=== PATIENT | female | born 1980 | race Two or more races ===

== ENCOUNTER 2016-08-29 19:30 | Inpatient (IN) | payer OTHER ==
[2016-08-30] MEDS ORDERED: ELECTROLYTE-148 SOLN 1,000 ML IV ONE (07:00)
[2016-08-30] MEDS ORDERED: CITRIC ACID/SODIUM CITRATE 30 ML UNIT-DOSE CUP PO ONE (07:00)
[2016-08-30] MEDS ORDERED: ELECTROLYTE-148 SOLN 1,000 ML IV SCH (08:00)
[2016-08-30 08:23] VITALS: BMI 47.0
--- NOTE | 2016-08-30 09:56 | HP ---
Past Medical History - Primary Care Physician PCP:: Bladimir Ly - Admission Chief Complaint: 36 weeks, oligohydramnion, breech History of Present Illness: 36 yo f edc by sono 09/27/16 with hx of oligo referred by DR pierce for c/s for olio, breech, fhr cat 1, cx clp, mi History Source: Patient Limitations to Obtaining History: No Limitations - Past Medical History ...: 4 ...Para: 0 ...Term: 0 ...: 0 ...Spon : 3 ...Induced : 0 ...Multiple Gestation: 0 ...LMP: 12/22/15 ... Weeks Gestation by Dates: 36.0 ...EDC by Dates: 09/27/16 ...EDC by Sono: 09/27/16 - Past Surgical History Hx Myomectomy: No Hx Transabdominal Cerclage: No - Smoking History Smoking history: Never smoked Have you smoked in the past 12 months: No - Alcohol/Substance Use Hx Alcohol Use: No - Social History Usual Living Arrangement: Yes: With Spouse History of Recent Travel: No Home Medications - Allergies Allergies/Adverse Reactions: Allergies Allergy/AdvReac Type Severity Reaction Status Date / Time No Known Allergies Allergy Verified 08/30/16 08:04 - Home Medications Home Medications: Ambulatory Orders Vit/Iron Fumarate/FA [ Tablet] 1 each PO DAILY 04/09/15 Ferrous Sulfate 1 tab PO DAILY 08/26/16 Review of Systems - Review of Systems Constitutional: reports: No Symptoms Eyes: reports: No Symptoms HENT: reports: No Symptoms Neck: reports: No Symptoms Cardiovascular: reports: No Symptoms Gastrointestinal: reports: No Symptoms Genitourinary: reports: No Symptoms Breasts: reports: No Symptoms Reported Musculoskeletal: reports: No Symptoms Integumentary: reports: No Symptoms Neurological: reports: No Symptoms Endocrine: reports: No Symptoms Hematology/Lymphatic: reports: No Symptoms Psychiatric: reports: No Symptoms Physical Exam - Maternity Vital Signs: Vital Signs Temperature 98.6 F 08/30/16 08:00 Pulse Rate 67 08/30/16 08:00 Respiratory Rate 18 08/30/16 08:00 Blood Pressure 102/68 08/30/16 08:00 O2 Sat by Pulse Oximetry (%) Constitutional: Yes: Well Nourished, No Distress, Calm, Obese Eyes: Yes: WNL, Conjunctiva Clear, EOM Intact HENT: Yes: WNL, Atraumatic, Normocephalic Neck: Yes: WNL, Supple, Trachea Midline Cardiovascular: Yes: WNL, Regular Rate and Rhythm Breast(s): Yes: WNL - Abdominal Exam/OB Fundal Height: 36 Number of Fetuses: Single Presentation: Breech Contractions: No Intensity: Unaware Monitor Mode: External Heart Rate Location: [facility] Category: I Accelerations: Uniform Decelerations: None - Vaginal Exam/OB Vaginal Bleediing: No Speculum Exam: No Presentation: Vertex/Position Station: -4 - Physical Exam Edema: Yes Edema: LLE: Trace, RLE: Trace Deep Tendon Reflex Grade: Normal +2 Hemorrhage Risk Assessment - Risk Factors Medium Risk Factors: Yes: EFW greater than 4000g Risk Score: 1 Risk Level: Medium Risk Problem List - Problems (1) with 36 completed weeks gestation Code(s): Z3A.36 - 36 WEEKS GESTATION OF (2) Oligohydramnios antepartum Code(s): O41.00X0 - OLIGOHYDRAMNIOS, UNSP TRIMESTER, NOT APPLICABLE OR UNSP Qualifiers: Trimester: third trimester (3) Breech presentation Code(s): O32.1XX0 - MATERNAL CARE FOR BREECH PRESENTATION, UNSP Qualifiers: Fetus number: single or unspecified fetus Qualified Code(s): O32.1XX0 - Maternal care for breech presentation, not applicable or unspecified Assessment/Plan admit for c/s, rba discussed,
[2016-08-30] MEDS ORDERED: diphenhydrAMINE HCL 25 MG CAPSULE (FP) PO PRN (11:25)
[2016-08-30] MEDS ORDERED: IBUPROFEN 800 MG/8 ML IJ IVPB PRN (11:25)
[2016-08-30] MEDS ORDERED: METHYLERGONOVINE MALEATE 0.2 MG/1 ML AMP IM PRN (11:25)
[2016-08-30] MEDS ORDERED: BENZOCAINE 20% 57 GM BOTTLE TP PRN (11:25)
[2016-08-30] MEDS ORDERED: oxyCODONE HCL 5 MG TABLET PO PRN ×2 (11:25)
[2016-08-30] MEDS ORDERED: WITCH HAZEL 50% (TUCKS) 40 PAD/JAR PAD TP PRN (11:25)
[2016-08-30] MEDS ORDERED: BENZOCAINE 28 GM HEMORRHOIDAL OINTMENT PR PRN (11:25)
[2016-08-30] MEDS ORDERED: ONDANSETRON 4 MG/2 ML VIAL IVPB PRN (11:29)
[2016-08-30] MEDS ORDERED: OXYTOCIN 20 UNITS in 0.9% NS 1,000 ML IV SCH (11:30)
[2016-08-30] MEDS ORDERED: CEFAZOLIN (PRE-DOCKED) 50 ML IVPB ONE (17:29)
[2016-08-30] MEDS: CEFAZOLIN 2 GM/D5W 50 ML IVPB SCH (18:46)
[2016-08-30] MEDS: DEXTROSE 5%-LACTATED RINGERS 1,000 ML IV SCH (21:14)
[2016-08-31] MEDS: CEFAZOLIN 2 GM/D5W 50 ML IVPB SCH ×2 (01:14→09:50)
[2016-08-31] MEDS: DEXTROSE 5%-LACTATED RINGERS 1,000 ML IV SCH (05:47)
[2016-08-31] MEDS: IBUPROFEN 600 MG TABLET (FP) PO PRN ×4 (05:47→20:45)
[2016-08-31] MEDS: SIMETHICONE 80 MG TAB.CHEW (FP) PO PRN ×4 (05:47→20:44)
[2016-08-31] MEDS: ACETAMINOPHEN 325 MG TABLET (FP) PO PRN ×4 (05:48→20:44)
[2016-08-31 08:39] LABS: BASOPHIL 0.2 % (0-2.0); EOSINOPHIL 0.8 % (0-4.5); MCH 32.1 pg (25.7-33.7); MCHC 33.8 g/dl (32.0-36.0); MEAN CELL VOLUME 94.8 fl (80-96); MEAN PLT VOLUME 8.5 fl (7.5-11.1); NEUTROPHILS 67.8 % (42.8-82.8); PLATELET COUNT 235 K/MM3 (134-434); RDW 13.1 % (11.6-15.6)
[2016-08-31] MEDS: ENOXAPARIN NA (PORCINE) 40 MG/0.4 ML DISP.SYRIN SQ SCH (09:50)
[2016-08-31] MEDS: FERROUS SO4 325 MG TABLET (FP) PO SCH (09:50)
[2016-08-31] MEDS: PRENATAL VITAMINS W/ FOLIC ACID TABLET (FP) PO SCH (09:50)
[2016-08-31] MEDS ORDERED: DIPHTH,PERTUSS(ACELL),TET 0.5 ML DISP.SYRIN IM ONE (10:00)
--- NOTE | 2016-08-31 11:01 | PN ---
Progress Note (short form) - Note Progress Note: Anesthesia/pain Alert and awake Vital Signs Temperature 97.8 F 08/31/16 08:43 Pulse Rate 69 08/31/16 08:43 Respiratory Rate 18 08/31/16 09:56 Blood Pressure 100/60 08/31/16 08:43 O2 Sat by Pulse Oximetry (%) 97 08/30/16 12:30 CBC, BMP 08/31/16 07:45 Current Active Problems Breech presentation (Acute) Oligohydramnios antepartum (Acute) with 36 completed weeks gestation (Acute) a/p:s/p c section Doing well post op Comfortable Continue current care Tian Yates MD
[2016-08-31] MEDS ORDERED: BISACODYL 10 MG SUPP.RECT RC PRN (11:25)
--- NOTE | 2016-08-31 11:29 | PN ---
Progress Note (short form) - Note Progress Note: pod 1 doing well, no c/o ,no execess vaginal bleeding CBC, BMP 08/31/16 07:45 Last Vital Signs Temp Pulse Resp BP Pulse Ox 97.8 F 69 18 100/60 97 08/31/16 08:43 08/31/16 08:43 08/31/16 09:56 08/31/16 08:43 08/30/16 12:30 abdomen soft, no distension, no cva incision dry, clean no calf tenderness plan ambulate, advance dist Problem List - Problems (1) with 36 completed weeks gestation Code(s): Z3A.36 - 36 WEEKS GESTATION OF (2) Oligohydramnios antepartum Code(s): O41.00X0 - OLIGOHYDRAMNIOS, UNSP TRIMESTER, NOT APPLICABLE OR UNSP Qualifiers: Trimester: third trimester (3) Breech presentation Code(s): O32.1XX0 - MATERNAL CARE FOR BREECH PRESENTATION, UNSP Qualifiers: Fetus number: single or unspecified fetus Qualified Code(s): O32.1XX0 - Maternal care for breech presentation, not applicable or unspecified
[2016-09-01] MEDS: SIMETHICONE 80 MG TAB.CHEW (FP) PO PRN ×4 (04:33→21:20)
[2016-09-01] MEDS: ACETAMINOPHEN 325 MG TABLET (FP) PO PRN ×4 (04:33→21:20)
[2016-09-01] MEDS: IBUPROFEN 600 MG TABLET (FP) PO PRN ×4 (04:34→21:20)
[2016-09-01] MEDS: ENOXAPARIN NA (PORCINE) 40 MG/0.4 ML DISP.SYRIN SQ SCH (09:24)
[2016-09-01] MEDS: PRENATAL VITAMINS W/ FOLIC ACID TABLET (FP) PO SCH (09:24)
[2016-09-01] MEDS: FERROUS SO4 325 MG TABLET (FP) PO SCH (09:25)
--- NOTE | 2016-09-01 09:28 | PN ---
Progress Note (short form) - Note Progress Note: pod 2 doing well, no c/o , ambulating abdomen soft, no distension, no cva incision dry, clean no calf tenderness plan ambulte, cbc in am Problem List - Problems (1) with 36 completed weeks gestation Code(s): Z3A.36 - 36 WEEKS GESTATION OF (2) Oligohydramnios antepartum Code(s): O41.00X0 - OLIGOHYDRAMNIOS, UNSP TRIMESTER, NOT APPLICABLE OR UNSP Qualifiers: Trimester: third trimester (3) Breech presentation Code(s): O32.1XX0 - MATERNAL CARE FOR BREECH PRESENTATION, UNSP Qualifiers: Fetus number: single or unspecified fetus Qualified Code(s): O32.1XX0 - Maternal care for breech presentation, not applicable or unspecified
[2016-09-01] MEDS ORDERED: SENNOSIDES/DOCUSATE COMBO (SENNA PLUS) TABLET (UD) PO PRN (22:00)
--- NOTE | 2016-09-01 23:38 | OP ---
DATE OF OPERATION: 08/30/2016 PREOPERATIVE DIAGNOSIS: 36 weeks, oligohydramnios, breech. POSTOPERATIVE DIAGNOSIS: 36 weeks, oligohydramnios, breech. PROCEDURE: Primary low segment transverse section. SURGEON: Lucy Ly M.D. GEOTECHNICAL DEPARTMENT MANAGER: Keith Ayon M.D. ANESTHESIA: Spinal. ANESTHESIOLOGIST: Abigail Thompson M.D. ESTIMATED BLOOD LOSS: 500 mL. OPERATION: Patient was taken to operating room with adequate spinal anesthesia. Abdomen and perineum were prepped and draped. Pfannenstiel abdominal skin incision was made. Abdominal wall was cut layer by layer until the peritoneum was exposed and incised. Upon entering the abdominal cavity, the lower uterine segment was identified, and uterovesical fold of the peritoneum was established. The bladder was pushed down. Then with the lower blade of the Shannon retractor in the pelvis, a low transverse incision was made. The incision extended laterally. Amniotic sac was entered. Clear fluid. Baby was in soraya breech, delivered via breech without any difficulty. Placenta was delivered manually. Uterine cavity was cleared of all remaining tissue. Then uterine incision was closed in 2 layers, the 1st layer with 0 Biosyn continuous suture, the 2nd layer with 0 Biosyn imbricating the 1st layer. Bladder flap was closed with 0 Biosyn continuous suture. Both tubes and ovaries were checked and were normal. No active bleeding was seen. All the lap, sponge, and instrument counts were correct. Peritoneum was closed with 0 Biosyn continuous suture. Muscles were brought together with interrupted suture with 0 Biosyn. Fascia was closed with 0 Biosyn continuous sutures. Subcutaneous fat interrupted sutures 0 Biosyn, and the skin was closed with 3-0 Vicryl subcuticular suture. The patient tolerated the procedure well and left the OR in good condition. LUCY LY M.D. [id number]
[2016-09-01] MEDS: guaiFENesin 200 MG/10 ML 10 ML UNIT-DOSE CUPS PO PRN (23:58)
[2016-09-02] MEDS: IBUPROFEN 600 MG TABLET (FP) PO PRN ×4 (03:52→19:59)
[2016-09-02] MEDS: ACETAMINOPHEN 325 MG TABLET (FP) PO PRN ×4 (03:52→19:56)
[2016-09-02] MEDS: SIMETHICONE 80 MG TAB.CHEW (FP) PO PRN ×4 (03:52→19:54)
[2016-09-02 08:13] LABS: BASOPHIL 0.3 % (0-2.0); EOSINOPHIL 1.4 % (0-4.5); MCH 32.1 pg (25.7-33.7); MCHC 33.5 g/dl (32.0-36.0); MEAN CELL VOLUME 95.7 fl (80-96); MEAN PLT VOLUME 8.3 fl (7.5-11.1); NEUTROPHILS 57.3 % (42.8-82.8); PLATELET COUNT 245 K/MM3 (134-434); RDW 13.3 % (11.6-15.6); WHITE BLOOD COUNT 8.5 K/mm3 (4.0-10.0)
--- NOTE | 2016-09-02 08:18 | PN ---
Progress Note (short form) - Note Progress Note: pod 3 doing well, had BM, ambulating Last Vital Signs Temp Pulse Resp BP Pulse Ox 98.7 F 57 L 18 108/69 97 09/02/16 08:01 09/02/16 08:01 09/02/16 08:01 09/01/16 22:00 08/30/16 12:30 abdomen soft, no distension, no cva incision dry. clean no calf tenderness plan ambulate, d/c home in am Problem List - Problems (1) with 36 completed weeks gestation Code(s): Z3A.36 - 36 WEEKS GESTATION OF (2) Oligohydramnios antepartum Code(s): O41.00X0 - OLIGOHYDRAMNIOS, UNSP TRIMESTER, NOT APPLICABLE OR UNSP Qualifiers: Trimester: third trimester (3) Breech presentation Code(s): O32.1XX0 - MATERNAL CARE FOR BREECH PRESENTATION, UNSP Qualifiers: Fetus number: single or unspecified fetus Qualified Code(s): O32.1XX0 - Maternal care for breech presentation, not applicable or unspecified
[2016-09-02] MEDS: FERROUS SO4 325 MG TABLET (FP) PO SCH (09:28)
[2016-09-02] MEDS: ENOXAPARIN NA (PORCINE) 40 MG/0.4 ML DISP.SYRIN SQ SCH (09:28)
[2016-09-02] MEDS: guaiFENesin 200 MG/10 ML 10 ML UNIT-DOSE CUPS PO PRN ×2 (09:28→19:56)
[2016-09-02] MEDS: PRENATAL VITAMINS W/ FOLIC ACID TABLET (FP) PO SCH (09:28)
[2016-09-02 21:17] VITALS: PULSE 73
--- NOTE | 2016-09-03 05:49 | DS ---
Physical Exam-COAL UNLOADER Vital Signs: Vital Signs Temperature 98.4 F 09/02/16 21:15 Pulse Rate 73 09/02/16 21:15 Respiratory Rate 18 09/02/16 21:15 Blood Pressure 109/66 09/02/16 21:15 O2 Sat by Pulse Oximetry (%) 97 08/30/16 12:30 Constitutional: Yes: Well Nourished Eyes: Yes: Conjunctiva Clear HENT: Yes: Atraumatic Neck: Yes: Supple Cardiovascular: Yes: Regular Rate and Rhythm Respiratory: Yes: Regular, CTA Bilaterally Gastrointestinal: Yes: Normal Bowel Sounds Renal/: Yes: WNL Pelvis: Yes: WNL External Genitalia: Yes: Normal Vaginal Exam: Yes: Normal Cervix: Yes: Normal Uterus: Yes: Firm Wound/Incision: Yes: Clean/Dry, Well Approximated, Neha Intact Neurological: Yes: Alert, Oriented ...Motor Strength: WNL Psychiatric: Yes: Alert, Oriented Labs: CBC, BMP 09/02/16 07:00 Delivery - Delivery Type of Anesthesia: Spinal Episiotomy/Laceration: None EBL (cc): 500 Delivery, Single - Stages of Labor Date of Delivery: 08/30/16 Time of Delivery: 10:19 Time Placenta Delivered: 10:20 - Condition of C Programmer/Psychiatric Mental Health Nurse Present: Yes Name: Geno Miller Infant Gender: Male Weight: 5 lb 14 oz Total Hours ROM (Hrs/Mins): 0/2 - 1 Minute Total Score: 9 5 Minutes Total Score: 9 - Feeding Plan Initial Plan: Elected not to breastfeed exclusively throughout hospitalization Discharge Summary Reason For Visit: C SECTION Current Active Problems Breech presentation (Acute) Oligohydramnios antepartum (Acute) with 36 completed weeks gestation (Acute) Procedures: Principal: Primary Hospital Course: Routine Post op care Condition: Good - Instructions Diet, Activity, Other Instructions: regular diet, follow up [facility] 1 week Referrals: Bladimir Ly MD [Staff Physician] - Disposition: HOME - Home Medications Comprehensive Discharge Medication List: Ambulatory Orders Vit/Iron Fumarate/FA [ Tablet] 1 each PO DAILY 04/09/15 Ferrous Sulfate 1 tab PO DAILY 08/26/16 Ibuprofen [Motrin -] 600 mg PO QID #28 tablet 09/01/16
[2016-09-03] MEDS: ACETAMINOPHEN 325 MG TABLET (FP) PO PRN (08:35)
[2016-09-03] MEDS: IBUPROFEN 600 MG TABLET (FP) PO PRN (08:36)
[2016-09-03] MEDS: SIMETHICONE 80 MG TAB.CHEW (FP) PO PRN (08:36)
[2016-09-03 09:42] VITALS: BP 101/47; TEMP 98.2
[2016-09-03] MEDS: FERROUS SO4 325 MG TABLET (FP) PO SCH (10:47)
[2016-09-03] MEDS: PRENATAL VITAMINS W/ FOLIC ACID TABLET (FP) PO SCH (10:47)
[2016-09-03] MEDS: guaiFENesin 200 MG/10 ML 10 ML UNIT-DOSE CUPS PO PRN (10:49)
[2016-09-03] MEDS: ENOXAPARIN NA (PORCINE) 40 MG/0.4 ML DISP.SYRIN SQ SCH (11:14)
--- NOTE | 2016-09-06 14:18 | PATH ---
Surgical Pathology Report Patient Name: JENNY MEJIA Med. Rec. #: [id number] /Age/Gender: 1980 (Age: 36) / F Account: [id number] Location: [facility] OBS/RUBY ENGINEER Taken: 08/30/2016 Received: 09/02/2016 Reported: 09/06/2016 Physicians: Bladimir Ly M.D. Specimen(s) Received PLACENTA Clinical History , 36 weeks, breech, oligohydramnios; SPAB x3, morbid obesity Primary c/section Final Diagnosis PLACENTA, DELIVERY: FOCALLY DISRUPTED, SMALL (<400 GM), THIRD TRIMESTER PLACENTA WITH FOCAL VILLOUS DYSMATURITY, MODERATE INCREASE IN PREVILLOUS, PERIVILLOUS, AND PRECHORIONIC FIBRIN DEPOSITION, THREE VESSEL UMBILICAL CORD, AND PLACENTAL MEMBRANES WITH FOCAL AMNION HYPERPLASIA. Electronically Signed Jacobo Osman M.D. Gross Description The specimen is received fresh, labeled "placenta" and is a 384 gram, 17.0 x 12.0 x 2.2 cm placenta with attached membranes and umbilical cord. The attached membranes are trejo, translucent with focal opacities and insert marginally. The umbilical cord measures 35 cm in length and averages 1.3 cm in diameter. The cord inserts eccentrically, 1 cm to the nearest margin. No true knots or strictures are identified. Cut surface of the umbilical cord reveals 3 vessels. The surface is prince-blue with fibrin deposition and appropriate caliber vessels. The maternal surface is red-brown with focal defects. Sectioning reveals red-brown, spongy parenchyma. No focal lesions are identified. Micro Computer Specialist sections are submitted in three cassettes as follows: 1- membrane rolls and umbilical cord; 2-3- full thickness sections of placenta. 09/05/2016 saudi09/05/2016
== END 2016-09-03 12:30 | disposition home or self-care (01) | DRG 540 ==
LOC: JLDR 08-30 07:00 → J3W 08-30 13:15
PROVIDERS: ADMIT Obstetrics & Gynecology; ATTEND Obstetrics & Gynecology
PROC: 10D00Z1 Extraction of Products of Conception, Low, Open Approach (ICD-10-PCS; principal; 2016-08-30)
DX: O41.03X0 Oligohydramnios, third trimester, not applicable or unspecified (principal); O32.1XX0 Maternal care for breech presentation, not applicable or unspecified; O99.214 Obesity complicating childbirth; E66.01 Morbid (severe) obesity due to excess calories; Z68.42 Body mass index [BMI] 45.0-49.9, adult; Z3A.36 36 weeks gestation of pregnancy; Z37.0 Single live birth
CPT/HCPCS: 36415; 80053; 85025; 85461; 85610; 85730; 86593; 86850; 86870; 86900; 86901; 86902; 86999; 88307-TC; 90715

== ENCOUNTER 2018-07-22 12:10 | Inpatient (IN) | payer OTHER ==
[~2018-07-22 12:10] MED LIST: CITRIC ACID/SODIUM CITRATE 30 ML UNIT-DOSE CUP PO ONE; ELECTROLYTE-148 SOLN 1,000 ML IV SCH
[2018-07-22 12:44] VITALS: BMI 47.0
[2018-07-22] MEDS ORDERED: CITRIC ACID/SODIUM CITRATE 30 ML UNIT-DOSE CUP PO ONE (12:58)
[2018-07-22] MEDS ORDERED: ELECTROLYTE-148 SOLN 1,000 ML IV SCH ×2 (13:00→13:10)
--- NOTE | 2018-07-22 13:09 | HP ---
Past Medical History - Admission Chief Complaint: Scheduled RLTCS History of Present Illness: 38yo @ 39wks here for scheduled RTLCS Preg c/b GDMA2, obesity, prior C/S History Source: Patient Limitations to Obtaining History: Language Barrier - Past Medical History REPAIRER HAIRSPRING: No: Alzheimer's, CVA, Dementia, Migraine, Multiple Sclerosis, Peripheral Neuropathy, Parkinson's, Seizure, Syncope, TIA, Vertigo, Other Cardiovascular: No: AFIB, Aneurysm, Aortic Insufficiency, Aortic Stenosis, CAD, CHF, Deep Vein Thrombosis, HTN, Hyperlipdemia, SD, Mitral Insufficiency, Mitral Stenosis, Murmur, Pulmonary Hypertension, Other Pulmonary: No: Asthma, Bronchitis, Cancer, COPD, O2 Dependent, Pneumonia, Previously Intubated, Pulmonary Embolus, Pulmonary Fibrosis, Sleep Apnea, Other Gastrointestinal: No: Ascites, Cancer, Constipation, Crohn's Disease, Diverticulitis, Diverticulosis, Esophageal Varices, Gastritis, GERD, GI Bleed, Hemorrhoids, Hiatal Hernia, Inflamatory Bowel Disease, Irritable Bowel Disease, Pancreatitis, Peptic Ulcer Disease, Ulcerative Colitis, Other Hepatobiliary: No: Cirrhosis, Cholelithiasis, Cholecystitis, Choledocholithiasis , Hepatitis A, Hepatitis B, Hepatitis C, Other Renal/: No: Renal Failure, Renal Inusuff, BPH, Cancer, Hematuria, Hemodialysis , Neurogenic Bladder, Renal Calculi, UTI, Other Reproductive: No: Ectopic , Endometriosis, Fibroids, PID, Polycystic Ovary Syndrome, Postmenopausal, Other ...: 5 ...Para: 1 ...Term: 0 ...: 1 ...Spon : 3 ...Induced : 0 ...Multiple Gestation: 0 ...LMP: 10/21/17 ... Weeks Gestation by Dates: 39.1 ...EDC by Dates: 07/28/18 ...EDC by Sono: 07/28/18 Heme/Onc: Yes: Anemia Psych: No: Addictions, Anxiety, Bipolar, Depression, Panic, Psychosis, Schizophrenia, Other Musculoskeletal: No: Bursitis, Chronic low back pain, Hemiparesis, Hemiplegia, Osteoarthritis, Paraplegia, Other Endocrine: No: [place]'s Disease, [place]'s Disease, Diabetes Insipidus, Diabetes Mellitus, Hyperparathyroidism, Hyperthyroidism, Hypothyroidism, Osteopenia, SIADH, Other Dermatology: No: Basal Cell, Cellulitis, Eczema, Melanoma, Psoriasis, Squamous Cell, Other - Past Surgical History Past Surgical History: Yes: Hx Myomectomy: No Hx Transabdominal Cerclage: No - Smoking History Smoking history: Never smoked Have you smoked in the past 12 months: No - Alcohol/Substance Use Hx Alcohol Use: No History of Substance Use: reports: None - Social History Usual Living Arrangement: Yes: With Spouse History of Recent Travel: No Home Medications - Allergies Allergies/Adverse Reactions: Allergies Allergy/AdvReac Type Severity Reaction Status Date / Time No Known Allergies Allergy Verified 07/22/18 12:45 - Home Medications Home Medications: Ambulatory Orders Vit/Iron Fum/Folic AC [ Tablet] 1 each PO DAILY 04/09/15 Ferrous Sulfate 1 tab PO DAILY MDD 1 08/26/16 Insulin Lispro [Humalog] 22 unit SQ BID 06/02/18 Insulin Regular [Novolin R Vial -] 28 units SQ BID 06/02/18 Physical Exam - Maternity Vital Signs: Vital Signs Temperature 98.1 F 07/22/18 12:27 Pulse Rate 67 07/22/18 12:27 Respiratory Rate 18 07/22/18 12:27 Blood Pressure 129/67 07/22/18 12:27 O2 Sat by Pulse Oximetry (%) Constitutional: Yes: Well Nourished, No Distress, Calm Eyes: Yes: WNL, Conjunctiva Clear, EOM Intact HENT: Yes: WNL, Atraumatic, Normocephalic Neck: Yes: WNL, Supple, Trachea Midline Cardiovascular: Yes: WNL, Regular Rate and Rhythm Breast(s): Yes: WNL - Abdominal Exam/OB Number of Fetuses: Single Presentation: Vertex Contractions: Yes Regularity: Irregular Intensity: Mild/Mod Category: I Accelerations: Non-Uniform Decelerations: None - Vaginal Exam/OB Vaginal Bleediing: No Speculum Exam: No Amniotic Membrane Status: Intact - Physical Exam Edema: No Problem List - Problems (1) Gestational diabetes Code(s): O24.419 - GESTATIONAL DIABETES MELLITUS IN , UNSP CONTROL Assessment/Plan 38yo @ 39.0wks here for RLTCS Admit to L&D NPO, IVFs Ancef Boyce SCDs Risk of procedure discussed including bleeding, infection, injury to bladder/ bowel/tubes/ovaries/vessels/nerves. Zenaida Hawthorne MD
[2018-07-22] MEDS ORDERED: OXYTOCIN 20 UNITS in 0.9% NS 40 UNIT/2,000 ML INFUS.BAG IV ONE (13:42)
[2018-07-22] MEDS ORDERED: ceFAZolin SODIUM 1 GM VIAL ONE (14:09)
[2018-07-22] MEDS ORDERED: morphine SULFATE/Preservative Free 0.5 MG/ML (1cc Syringe) ONE (14:09)
[2018-07-22] MEDS ORDERED: morphine SULFATE/Preservative Free 0.5 MG/ML (1cc Syringe) SPIN ONE (14:22)
[2018-07-22] MEDS ORDERED: PHENYLEPHRINE HCL 10 MG/1 ML SINGLE DOSE VIAL ONE (14:27)
[2018-07-22] MEDS ORDERED: ONDANSETRON 4 MG/2 ML VIAL IVPUSH PRN (14:40)
[2018-07-22] MEDS ORDERED: METHYLERGONOVINE MALEATE 0.2 MG/1 ML AMP IM PRN (15:08)
[2018-07-22] MEDS ORDERED: IBUPROFEN 600 MG TABLET (FP) PO PRN (15:08)
--- NOTE | 2018-07-22 15:11 | OP ---
Operative Note - Note: Operative Date: 07/22/18 Pre-Operative Diagnosis: 39 week , prior C/S, Gestational Diabetes A2, Obesity Operation: Repeat Low Transverse Findings: VFI, ROSI position. No nuchal. No meconium. Weight 8.2lbs, Apgars 9/9. Normal tubes and ovaries. Post-Operative Diagnosis: Same as Pre-op Surgeon: Karley Hawthorne Auto Painter Helper: Thanh Alvarado Anesthesia: Spinal Estimated Blood Loss (mls): 750 Drains, Volume Out (mls): 100 (clear urine)
[2018-07-22] MEDS ORDERED: IBUPROFEN 800 MG/8 ML IJ IVPB ONE (15:57)
[2018-07-22] MEDS: IBUPROFEN 800 MG/8 ML IJ IVPB PRN (16:15)
[2018-07-22] MEDS ORDERED: OXYTOCIN 20 UNITS in 0.9% NS 20 UNIT/1,000 ML INFUS.BAG IV SCH (17:00)
[2018-07-22] MEDS: FERROUS SO4 325 MG TABLET (FP) PO SCH (22:13)
[2018-07-23] MEDS: SIMETHICONE 80 MG TAB.CHEW (FP) PO PRN ×4 (03:37→22:30)
[2018-07-23] MEDS: IBUPROFEN 800 MG/8 ML IJ IVPB PRN (03:38)
--- NOTE | 2018-07-23 06:09 | PN ---
Post Progress Note - Subjective Subjective: Pain controlled. No fevers/chills Post Day: 1 Type of Delivery: Repeat C/S Vital Signs: Vital Signs Temperature 98 F 07/23/18 02:00 Pulse Rate 91 H 07/23/18 02:00 Respiratory Rate 18 07/23/18 03:00 Blood Pressure 118/61 07/23/18 02:00 O2 Sat by Pulse Oximetry (%) 99 07/22/18 21:00 Uterus: Yes: Fundus @ umbilicus Incision: Yes: Dressing dry and intact Abdomen/GI: Yes: Abdomen soft Lochia: Yes: Rubra Lochia, amount: Small Extremities: Yes: Calves non-tender Activity: Ambulating Problem List - Problems (1) Gestational diabetes Code(s): O24.419 - GESTATIONAL DIABETES MELLITUS IN , UNSP CONTROL Assessment/Plan 38yo s/p RLTCS, POD#1 Routine PP care OOB, ambulate D/C Boyce Labs pending Anticipate d/c to home by POD#4 Zenaida Hawthorne MD
--- NOTE | 2018-07-23 07:58 | OP ---
DATE OF OPERATION: 07/22/2018 PREOPERATIVE DIAGNOSIS: A 39-week , gestational diabetes type A2, prior delivery, desires elective repeat section. POSTOPERATIVE DIAGNOSIS: A 39-week , gestational diabetes type A2, prior delivery, desires elective repeat section. PROCEDURE: Repeat low transverse section. SURGEON: Karley Hawthorne MD CLINICAL PHARMACY TECHNICIAN: RE Jimenez ANESTHESIA: Spinal. INTRAVENOUS FLUIDS: Per anesthesia record. ESTIMATED BLOOD LOSS: 750 mL. FINDINGS: Viable female , ROSI presentation, no nuchal, no meconium, weight 8 pounds 2 ounces, 9, 9, normal tubes and ovaries bilaterally. COMPLICATIONS: None. CONDITION: Stable to recovery room. URINE OUTPUT: Clear urine, 100 mL. NATURE OF PROCEDURE: After appropriate consents were signed, the patient was taken to the operating room where spinal anesthesia was administered. She was placed in supine position, and the abdomen was prepped and draped in normal sterile fashion. Boyce catheter had been inserted prior to entry into the operating room. Time-out was performed confirming correct patient and procedure. A Pfannenstiel incision was then made and carried through to the underlying layer until the fascia was nicked in the midline. The fascia was then extended bilaterally with the Wang scissors. The inferior aspect of the fascia was grasped, tented upwards with the Caleb clamps, and the rectus muscles dissected off bluntly and with the Wang scissors. Attention was then paid to the superior aspect, which was taken down in a similar fashion. The rectus muscles were in the midline using sharp dissection with a scalpel. The peritoneum was then entered after transilluminating the peritoneum and noting a clear reflection with the Metzenbaum scissors. The peritoneum was then extended bluntly. Bladder blade was then inserted. The uterine serosa was then grasped, nicked with the Metzenbaum scissors, and extended laterally to create the bladder flap, which was done digitally. The bladder blade was then reinserted. The uterus was incised in the low transverse fashion. Clear amniotic fluid was noted. The infants head was delivered without difficulty as were the remaining shoulders and body. The cord was clamped and cut. The infant was then handed off to the awaiting pediatric staff. The uterus was then exteriorized. The placenta was removed manually. The uterus was cleared of all clot and debris. The hysterotomy was closed in a single layer with a 1-0 Vicryl. The left hysterotomy was noted to still be bleeding after the 1st layer was closed and with several figure-of-8 sutures, hemostasis was achieved on the left hysterotomy. The adnexa were inspected, noted to be clear. The uterus was then returned to the abdominal cavity. The bladder blade was reinserted. The hysterotomy was reexamined and noted to be hemostatic. The adnexa were cleared of clot and debris. The muscles were then closed with a 2-0 chromic, fascia was closed with a 0 Vicryl, the subcutaneous tissue was closed with a 3-0 plain, and the skin was closed with a 3-0 Vicryl. All sponge, lap, needle counts were correct x3. The patient did receive 2 g of Ancef at the start of the procedure. She was taken from the operating room to the recovery room in stable condition. MD DANIEL HORVATH/[id number]
[2018-07-23 08:12] LABS: BASO % 0.2 % (0-2.0); EOS % 0.4 % (0-4.5); HEMATOCRIT 32.7 % (32.4-45.2); HEMOGLOBIN 11.2 GM/dL (10.7-15.3); LYMPH % 16.8 % (8-40); MCH 31.9 pg (25.7-33.7); MCHC 34.2 g/dl (32.0-36.0); MEAN CELL VOLUME 93.3 fl (80-96); MEAN PLT VOLUME 8.9 fl (7.5-11.1); MONO % 7.4 % (3.8-10.2); NEUT % 75.2 % (42.8-82.8); PLATELET COUNT 226 K/MM3 (134-434); RBC 3.51 M/mm3 (3.60-5.2); WHITE BLOOD COUNT 11.5 K/mm3 (4.0-10.0)
[2018-07-23] MEDS: IBUPROFEN 600 MG TABLET (FP) PO PRN ×2 (08:48→22:32)
[2018-07-23] MEDS: oxyCODONE HCL 5 MG TABLET PO PRN ×3 (08:48→22:30)
--- NOTE | 2018-07-23 10:38 | PN ---
Progress Note (short form) - Note Progress Note: Anesthesia postop note 38 y/o F s/p spinal anesthesia for section, duramorph for postop pain management POD#1, vss, aaox3, pain well controlled, no complaints, sensory motor intact distally No anesthesia complications.
[2018-07-23] MEDS: FERROUS SO4 325 MG TABLET (FP) PO SCH ×2 (12:33→22:26)
[2018-07-23] MEDS: PRENATAL VITAMINS W/ FOLIC ACID TABLET (FP) PO SCH (12:34)
[2018-07-23] MEDS ORDERED: BISACODYL 10 MG SUPP.RECT RC PRN (15:08)
[2018-07-23] MEDS: ACETAMINOPHEN 325 MG TABLET (FP) PO PRN ×2 (15:59→22:33)
--- NOTE | 2018-07-24 07:50 | PN ---
Progress Note (short form) - Note Progress Note: pod 2 s/p repeat c/s doing well, ambulating , passing gas CBC, BMP 07/23/18 06:45 Last Vital Signs Temp Pulse Resp BP Pulse Ox 98.7 F 106 H 20 133/84 96 07/24/18 01:00 07/23/18 22:12 07/23/18 22:12 07/23/18 22:12 07/23/18 22:12 abdomen soft, no distension, no cva incision dry, clean no calf tenderness plan ambulate, pain management
[2018-07-24] MEDS: oxyCODONE HCL 5 MG TABLET PO PRN ×2 (08:31→19:34)
[2018-07-24] MEDS: SIMETHICONE 80 MG TAB.CHEW (FP) PO PRN ×2 (08:31→19:33)
[2018-07-24] MEDS: IBUPROFEN 600 MG TABLET (FP) PO PRN ×2 (08:31→19:33)
[2018-07-24] MEDS: PRENATAL VITAMINS W/ FOLIC ACID TABLET (FP) PO SCH (10:28)
[2018-07-24] MEDS: FERROUS SO4 325 MG TABLET (FP) PO SCH ×2 (10:29→22:14)
[2018-07-25 06:50] LABS: BASO % 0.3 % (0-2.0); EOS % 1.3 % (0-4.5); HEMATOCRIT 32.7 % (32.4-45.2); LYMPH % 27.2 % (8-40); MCH 31.8 pg (25.7-33.7); MCHC 33.8 g/dl (32.0-36.0); MEAN CELL VOLUME 94.1 fl (80-96); MEAN PLT VOLUME 8.3 fl (7.5-11.1); MONO % 9.2 % (3.8-10.2); PLATELET COUNT 264 K/MM3 (134-434); RBC 3.47 M/mm3 (3.60-5.2); RDW 13.2 % (11.6-15.6); WHITE BLOOD COUNT 8.2 K/mm3 (4.0-10.0)
[2018-07-25] MEDS: oxyCODONE HCL 5 MG TABLET PO PRN (07:38)
[2018-07-25] MEDS: IBUPROFEN 600 MG TABLET (FP) PO PRN (07:39)
[2018-07-25] MEDS: SIMETHICONE 80 MG TAB.CHEW (FP) PO PRN (07:39)
--- NOTE | 2018-07-25 08:48 | PN ---
Post Progress Note - Subjective Subjective: Pt feeling well. Wants to go home Post Day: 3 Type of Delivery: Repeat C/S Vital Signs: Vital Signs Temperature 98.5 F 07/24/18 20:36 Pulse Rate 107 H 07/24/18 20:36 Respiratory Rate 20 07/24/18 20:36 Blood Pressure 127/76 07/24/18 20:36 O2 Sat by Pulse Oximetry (%) 96 07/23/18 22:12 Breast Exam: Yes: Soft Uterus: Yes: Fundus Firm Incision: Yes: Other (incision healing well) Abdomen/GI: Yes: Abdomen soft Lochia: Yes: Rubra Lochia, amount: Small Extremities: Yes: Calves non-tender - Labs Labs: CBC WBC 8.2 K/mm3 (4.0-10.0) 07/25/18 06:00 RBC 3.47 M/mm3 (3.60-5.2) L 07/25/18 06:00 Hgb 11.0 GM/dL (10.7-15.3) 07/25/18 06:00 Hct 32.7 % (32.4-45.2) 07/25/18 06:00 MCV 94.1 fl (80-96) 07/25/18 06:00 MCH 31.8 pg (25.7-33.7) 07/25/18 06:00 MCHC 33.8 g/dl (32.0-36.0) 07/25/18 06:00 RDW 13.2 % (11.6-15.6) 07/25/18 06:00 Plt Count 264 K/MM3 (134-434) 07/25/18 06:00 MPV 8.3 fl (7.5-11.1) 07/25/18 06:00 Absolute Neuts (auto) 5.1 K/mm3 (1.5-8.0) 07/25/18 06:00 Neutrophils % 62.0 % (42.8-82.8) 07/25/18 06:00 Lymphocytes % 27.2 % (8-40) D 07/25/18 06:00 Monocytes % 9.2 % (3.8-10.2) 07/25/18 06:00 Eosinophils % 1.3 % (0-4.5) D 07/25/18 06:00 Basophils % 0.3 % (0-2.0) 07/25/18 06:00 Nucleated RBC % 0 % (0-0) 07/25/18 06:00 Problem List - Problems (1) delivery delivered Assessment/Plan: Pt POD#3 s/p c/s feeling well stable for discharge home pelvic rest x 6 weeks f/u this week in clinic for wound check Dr. Mckinney Code(s): O82 - ENCOUNTER FOR DELIVERY WITHOUT INDICATION
[2018-07-25 09:39] VITALS: BP 105/62; PULSE 96; TEMP 98.2
[2018-07-25] MEDS: PRENATAL VITAMINS W/ FOLIC ACID TABLET (FP) PO SCH (10:47)
[2018-07-25] MEDS: FERROUS SO4 325 MG TABLET (FP) PO SCH (11:50)
--- NOTE | 2018-07-30 18:43 | PATH ---
Surgical Pathology Report Patient Name: JENNY MEJIA Med. Rec. 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 Comment: Special stain for iron highlights iron within hemosiderin-laden macrophages. Electronically Signed Chelo Chiu M.D. Gross Description The specimen is received fresh labeled placenta and is a 660 gram, 21.0 x 14.5 x 3.4 cm. placenta with attached membranes and umbilical cord. The attached membranes are trejo, thick, cloudy and insert marginally. The umbilical cord measures 30 cm. in length and averages 1.4 cm. in diameter. The cord inserts centrally. No true knots or strictures are identified. Cut surface of the umbilical cord reveals 3 vessels. The surface is prince blue with moderate fibrin deposition and appropriate caliber vessels. The maternal surface is red-brown with focal defects. Sectioning reveals red-brown, spongy parenchyma. No lesions are identified. Aerospace Engineer sections are submitted in three cassettes as follows: 1- membrane rolls and umbilical cord; 2-3- full thickness sections of placenta. /07/28/2018 formerly [facility]07/28/2018
== END 2018-07-25 12:25 | disposition home or self-care (01) | DRG 540 ==
LOC: JLDR 12:10 → J3W 16:52
PROVIDERS: ADMIT Obstetrics & Gynecology; ATTEND Obstetrics & Gynecology
PROC: 10D00Z1 Extraction of Products of Conception, Low, Open Approach (ICD-10-PCS; principal; 2018-07-22)
DX: O24.429 Gestational diabetes mellitus in childbirth, unspecified control (principal); O34.219 Maternal care for unspecified type scar from previous cesarean delivery; O99.214 Obesity complicating childbirth; E66.01 Morbid (severe) obesity due to excess calories; Z3A.39 39 weeks gestation of pregnancy; Z37.0 Single live birth
CPT/HCPCS: 36415; 82962; 85025; 85461; 86593; 86999; 88307-TC

== ENCOUNTER 2021-10-19 17:00 | Emergency (ER) | payer OTHER ==
[2021-10-19] MEDS ORDERED: ACETAMINOPHEN 325 MG TABLET (FP) PO ONE (17:39)
[2021-10-19 17:56] VITALS: TEMP 98.8; BMI 48.4
[2021-10-19 17:56] LABS: HEMATOCRIT 38.3 % (32.4-45.2); HEMOGLOBIN 13.4 G/dL (10.7-15.3); MEAN CELL VOLUME 91.3 fl (80-96); PLATELET COUNT 335.7 10^3/uL (134-434); RBC 4.19 10^6/uL (3.60-5.2); RDW 13.2 % (11.6-15.6); WHITE BLOOD COUNT 9.3 10^3/uL (4.0-10.8)
[2021-10-19 18:24] LABS: ALBUMIN 4.1 g/dl (3.4-5.0); BILIRUBIN,TOTAL 0.4 mg/dl (0.2-1); CALCIUM 9.5 mg/dl (8.5-10); CREATININE 0.8 mg/dl (0.55-1.3); TOT PROT 7.5 g/dl (6.4-8.2)
[2021-10-19 20:26] VITALS: BP 112/60; PULSE 84
== END 2021-10-19 21:37 | disposition home or self-care (01) ==
LOC: FER 17:00
DX: R07.9 Chest pain, unspecified (principal); F41.9 Anxiety disorder, unspecified
CPT/HCPCS: 36415; 71045-TC-FY; 80053; 84484; 85025; 93005; 99285-25

== ENCOUNTER 2021-12-24 12:12 | Emergency (ER) | payer OTHER ==
[2021-12-24 12:27] VITALS: BP 134/71; PULSE 80; RESP 18; TEMP 98.2; BMI 49.4
[2021-12-24] MEDS ORDERED: ACETAMINOPHEN 1000 MG/100 ML BAG IVPB ONE (14:36)
[2021-12-24 14:47] LABS: BASO % 0.4 % (0-2.0); EOS % 1.1 % (0-4.5); HEMATOCRIT 38.5 % (32.4-45.2); LYMPH % 33.6 % (8-40); MCH 31.2 pg (25.7-33.7); MCHC 33.8 g/dl (32.0-36.0); MEAN CELL VOLUME 92.4 fl (80-96); MEAN PLT VOLUME 8.4 fl (7.5-11.1); MONO % 8.7 % (3.8-10.2); NEUT % 56.2 % (42.8-82.8); PLATELET COUNT 323 10^3/uL (134-434); RBC 4.16 M/mm3 (3.60-5.2); WHITE BLOOD COUNT 8.4 K/mm3 (4.0-10.0)
[2021-12-24 14:54] LABS: EPI CELLS 14 /uL (0-25.1); HYALINE CASTS 1 /uL (0-3.1); PH,URINE 6.5 (5.0-8.0); URINE APPEARANCE CLEAR; URINE BACTERIA 1956 /uL (0-1359); URINE BILIRUBIN NEGATIVE (NEGATIVE); URINE COLOR YELLOW; URINE GLUCOSE (UA) NEGATIVE (NEGATIVE); URINE KETONE NEGATIVE (NEGATIVE); URINE LEUK ESTERASE NEGATIVE (NEGATIVE); URINE NITRITE NEGATIVE (NEGATIVE); URINE PROTEIN NEGATIVE (NEGATIVE); URINE RBC 81 /uL (0-23.9); URINE UROBILINOGEN 0.2 mg/dL (0.2-1.0); URINE WBC 35 /uL (0-25.8)
[2021-12-24 15:06] LABS: BLOOD UREA NITROGEN 13.5 mg/dL (7-18); CALCIUM 9.2 mg/dL (8.5-10.1)
[2021-12-24 15:07] LABS: ALBUMIN 3.6 g/dl (3.4-5.0)
[2021-12-24 15:08] LABS: HCG,QUALITATIVE URINE Positive
[2021-12-24 15:10] LABS: CREATININE 0.7 mg/dL (0.55-1.3)
[2021-12-24 15:11] LABS: BILIRUBIN,TOTAL 0.2 mg/dL (0.2-1); TOT PROT 7.1 g/dl (6.4-8.2)
[2021-12-24] MEDS ORDERED: ACETAMINOPHEN 500 MG TABLET (FP) PO ONE (15:21)
[2021-12-24] MEDS ORDERED: ACETAMINOPHEN 500 MG TABLET (FP) ONE (16:05)
== END 2021-12-24 17:08 | disposition home or self-care (01) ==
LOC: JER 12:12
PROC: 3E033NZ Introduction of Analgesics, Hypnotics, Sedatives into Peripheral Vein, Percutaneous Approach (ICD-10-PCS; principal; 2021-12-24)
DX: O20.0 Threatened abortion (principal)
CPT/HCPCS: 36415; 76801-TC; 80053; 81003; 84702; 84703; 85025; 86850; 86900; 86901; 87086; 99284-25

== ENCOUNTER 2021-12-26 08:15 | Emergency (ER) | payer OTHER ==
[2021-12-26 08:23] VITALS: BP 119/63; PULSE 85; RESP 18; TEMP 97.9; BMI 49.4
[2021-12-26] MEDS ORDERED: RHO(D) IMMUNE GLOBULIN 1,500 UNIT DISP.SYRIN IM ONE (11:36)
== END 2021-12-26 12:40 | disposition home or self-care (01) ==
LOC: JERFT 08:15
PROC: 3E0234Z Introduction of Serum, Toxoid and Vaccine into Muscle, Percutaneous Approach (ICD-10-PCS; principal; 2021-12-26)
DX: O03.9 Complete or unspecified spontaneous abortion without complication (principal)
CPT/HCPCS: 36415; 76817-TC; 84702; 86999; 99284-25; J1561

== ENCOUNTER 2022-02-11 17:35 | Emergency (ER) | payer OTHER ==
[2022-02-11 18:01] VITALS: BP 127/76; PULSE 79; RESP 18; TEMP 98.2; BMI 47.5
[2022-02-11] MEDS ORDERED: CEPHALEXIN MONOHYDRATE 500 MG CAPSULE (UD) PO ONE (19:42)
[2022-02-11] MEDS ORDERED: predniSONE 20 MG TABLET (UD) PO ONE (19:45)
[2022-02-11] MEDS ORDERED: diphenhydrAMINE HCL 50 MG CAPSULE PO ONE (19:54)
[2022-02-11] MEDS ORDERED: diphenhydrAMINE HCL 25 MG CAPSULE (FP) PO ONE (19:58)
[2022-02-11] MEDS ORDERED: CEPHALEXIN MONOHYDRATE 500 MG CAPSULE (UD) ONE (19:58)
[2022-02-11] MEDS ORDERED: predniSONE 20 MG TABLET (UD) ONE ×2 (19:58)
== END 2022-02-11 20:09 | disposition home or self-care (01) ==
LOC: FER 17:35
DX: L51.9 Erythema multiforme, unspecified (principal); L03.116 Cellulitis of left lower limb
CPT/HCPCS: 99283-25

== ENCOUNTER 2022-05-31 14:00 | Emergency (ER) | payer OTHER ==
[2022-05-31 14:24] VITALS: BP 130/70; PULSE 80; RESP 18; TEMP 98.6; BMI 48.6
[2022-05-31] MEDS ORDERED: KETOROLAC TROMETHAMINE 30 MG/1 ML VIAL IM ONE (16:24)
[2022-05-31] MEDS ORDERED: oxyCODONE HCL 5 MG TABLET PO ONE (16:24)
[2022-05-31] MEDS ORDERED: KETOROLAC TROMETHAMINE 30 MG/1 ML VIAL ONE (16:46)
[2022-05-31] MEDS ORDERED: oxyCODONE HCL 5 MG TABLET ONE (16:46)
== END 2022-05-31 19:04 | disposition home or self-care (01) ==
LOC: FER 14:00
PROC: 3E0233Z Introduction of Anti-inflammatory into Muscle, Percutaneous Approach (ICD-10-PCS; principal; 2022-05-31)
DX: M54.50 Low back pain, unspecified (principal)
CPT/HCPCS: 99284-25

== ENCOUNTER 2023-06-10 23:06 | Emergency (ER) | payer OTHER ==
[2023-06-10 23:15] VITALS: BP 140/86; PULSE 71; RESP 16; TEMP 98.1; BMI 35.3
[2023-06-11] MEDS ORDERED: ACETAMINOPHEN INJECTION 100 ML IVPB ONE (00:14)
[2023-06-11] MEDS: ACETAMINOPHEN 1000 MG/100 ML BAG IVPB ONE (00:24)
[2023-06-11] MEDS ORDERED: KETOROLAC TROMETHAMINE 30 MG/1 ML VIAL ONE (01:09)
[2023-06-11] MEDS: KETOROLAC TROMETHAMINE 30 MG/1 ML VIAL IVPUSH ONE (01:12)
== END 2023-06-11 02:35 | disposition home or self-care (01) ==
LOC: FER 23:06
PROC: 3E033NZ Introduction of Analgesics, Hypnotics, Sedatives into Peripheral Vein, Percutaneous Approach (ICD-10-PCS; principal; 2023-06-10)
PROC: 3E0333Z Introduction of Anti-inflammatory into Peripheral Vein, Percutaneous Approach (ICD-10-PCS; 2023-06-11)
DX: R51.9 Headache, unspecified (principal); R11.0 Nausea
CPT/HCPCS: 70450-TC; 81025; 96374; 96375; 99284-25; J0131

== ENCOUNTER 2024-01-01 11:10 | Observation (INO) | payer OTHER ==
[2024-01-01] MEDS: MECLIZINE HCL 25 MG TABLET (FP) PO ONE (13:16)
[2024-01-01] MEDS: SODIUM CHLORIDE 0.9% 500 ML INFUS.BAG IV ONE (13:54)
[2024-01-01] MEDS: ACETAMINOPHEN 1000 MG/100 ML BAG IVPB ONE (13:55)
[2024-01-01] MEDS ORDERED: MECLIZINE HCL 25 MG TABLET (FP) ONE (13:56)
[2024-01-01] MEDS ORDERED: ACETAMINOPHEN INJECTION 100 ML ONE (13:56)
[2024-01-01 13:58] LABS: ALBUMIN 4.2 g/dl (3.4-5.0); BILIRUBIN,TOTAL 0.5 mg/dl (0.2-1); CALCIUM 9.8 mg/dl (8.5-10.1); CREATININE 0.6 mg/dl (0.6-1.3); POTASSIUM 4.4 mmol/L (3.5-5.1); TOT PROT 6.7 g/dl (6.4-8.2)
[2024-01-01] MEDS ORDERED: diazePAM CARPU-JECT 10 MG/2 ML DISP.SYRIN ONE (15:54)
[2024-01-01] MEDS: diazePAM CARPU-JECT 10 MG/2 ML DISP.SYRIN IVPUSH ONE (16:00)
[2024-01-01 16:22] LABS: HEMATOCRIT 37.3 % (32.4-45.2); HEMOGLOBIN 11.9 G/dL (10.7-15.3); MCH 28.8 pg (25.7-33.7); MCHC 31.9 g/dl (32.0-36.0); MEAN CELL VOLUME 90.4 fl (80-96); MEAN PLT VOLUME 8.9 fl (7.5-11.1); PLATELET COUNT 329.8 10^3/uL (134-434); RBC 4.13 10^6/uL (3.60-5.2); RDW 13.7 % (11.6-15.6)
[2024-01-01 16:49] LABS: PLATELET ESTIMATE ADEQUATE
[2024-01-01 16:55] LABS: INR 0.99 (0.83-1.09); PROTHROMBIN TIME (PATIENT) 11.3 SEC (9.7-13.0)
[2024-01-01 16:57] LABS: ACTIVATED PTT 28.1 SECONDS (25.2-36.5)
[2024-01-01 18:19] LABS: HIV INTERPRETATION NEGATIVE (NEGATIVE)
[2024-01-01] MEDS ORDERED: ACETAMINOPHEN 325 MG TABLET (FP) PO PRN (19:40)
[2024-01-01 20:04] LABS: MAGNESIUM 1.8 mg/dL (1.8-2.4); PHOSPHOROUS 4.1 (2.5-4.9)
[2024-01-01 20:57] VITALS: BMI 34.9
[2024-01-01] MEDS ORDERED: MECLIZINE HCL 25 MG TABLET (FP) PO PRN (20:58)
[2024-01-01] MEDS: ASPIRIN 81 MG CHEWABLE TABLETS PO ONE (21:14)
[2024-01-01] MEDS: SODIUM CHLORIDE 1,000 ML IV SCH (21:19)
[2024-01-01 22:02] LABS: COCAINE, UR NEGATIVE (NEGATIVE); METHADONE, UR NEGATIVE (NEGATIVE); OPIATES, URI NEGATIVE (NEGATIVE); PHENCYCLIDINE,URINE NEGATIVE (NEGATIVE); URINE AMPHETAMINES NEGATIVE (NEGATIVE); URINE BARBITURATES NEGATIVE (NEGATIVE); URINE BENZODIAZEPINES NEGATIVE (NEGATIVE)
[2024-01-02 06:39] VITALS: RESP 18
[2024-01-02] MEDS ORDERED: ACETAMINOPHEN 325 MG TABLET (FP) PO PRN (07:16)
[2024-01-02 08:24] LABS: HEMATOCRIT 33.3 % (32.4-45.2); HEMOGLOBIN 10.5 G/dL (10.7-15.3); MCH 28.6 pg (25.7-33.7); MCHC 31.6 g/dl (32.0-36.0); MEAN CELL VOLUME 90.4 fl (80-96); MEAN PLT VOLUME 8.9 fl (7.5-11.1); PLATELET COUNT 344.3 10^3/uL (134-434); RBC 3.68 10^6/uL (3.60-5.2); RDW 14.1 % (11.6-15.6); WHITE BLOOD COUNT 6.2 10^3/uL (4.0-10.8)
[2024-01-02 08:30] LABS: CALCIUM 8.9 mg/dl (8.5-10.1); CREATININE 0.7 mg/dl (0.6-1.3); POTASSIUM 4.3 mmol/L (3.5-5.1)
[2024-01-02] MEDS: CHOLECALCIFEROL (VIT D3) 400 UNIT (10 MCG) TABLET PO SCH (10:59)
[2024-01-02 12:47] LABS: IRON SERUM 85 ug/dL (50-175); TOTAL IRON BINDING CAPACITY 413 ug/dL (250-450)
[2024-01-02 14:05] VITALS: BP 96/68; PULSE 55; TEMP 99
[2024-01-02] MEDS: CYANOCOBALAMIN (VITAMIN B-12) 1000 MCG/1 ML VIAL IM ONE (14:59)
== END 2024-01-02 17:47 | disposition home or self-care (01) ==
LOC: FER 11:10 → FM/S 17:44 → INTOOBSV 17:44
PROVIDERS: ADMIT Internal Medicine; ATTEND Internal Medicine
PROC: 3E033NZ Introduction of Analgesics, Hypnotics, Sedatives into Peripheral Vein, Percutaneous Approach (ICD-10-PCS; principal; 2024-01-01)
PROC: 3E023GC Introduction of Other Therapeutic Substance into Muscle, Percutaneous Approach (ICD-10-PCS; 2024-01-01)
PROC: 3E0333Z Introduction of Anti-inflammatory into Peripheral Vein, Percutaneous Approach (ICD-10-PCS; 2024-01-01)
PROC: 3E0337Z Introduction of Electrolytic and Water Balance Substance into Peripheral Vein, Percutaneous Approach (ICD-10-PCS; 2024-01-01)
DX: R42 Dizziness and giddiness (principal); E11.9 Type 2 diabetes mellitus without complications; Z98.84 Bariatric surgery status; G43.809 Other migraine, not intractable, without status migrainosus; G44.89 Other headache syndrome
CPT/HCPCS: 36415; 70450-TC; 70496-TC; 70498-TC; 70544-TC; 70551-TC; 80048; 80053; 80061; 80307; 81003; 82550; 82607; 82728; 82746; 82962; 83036; 83540; 83550; 83735; 84100; 84439; 84443; 84484; 84702; 85027; 85610; 85730; 86803; 87389; 93005; 96361; 96372; 96374; 96375; 97116-GP; 97161-GP; 99285-25; G0378; J0131; Q9967